=== PATIENT | female | born 1970 | race Native Hawaiian/Other Pacific Islander ===

== ENCOUNTER 2019-03-06 14:01 | Emergency (ER) | payer OTHER ==
[2019-03-06 14:10] VITALS: RESP 20; TEMP 97.8
[2019-03-06 15:48] LABS: BASO # 0.1 K/uL (0.0-0.2); BASO % 0.8 % (0.0-2.0); EOS # 0.3 K/uL (0.0-0.7); EOS % 2.7 % (0.0-4.0); HEMOGLOBIN 13.6 g/dL (11.0-16.0); LYMPH # 2.5 K/uL (1.0-4.3); MEAN CELL VOLUME 88.4 fL (81.0-99.0); MEAN CORPUSCULAR HEMOGLOBIN 30.3 pg (27.0-31.0); MEAN CORPUSCULAR HGB CONC 34.3 g/dL (33.0-37.0); MEAN PLATELET VOLUME 7.7 fL (7.2-11.7); MONO # 0.6 K/uL (0.0-0.8); MONO % 6.9 % (0.0-10.0); NEUT # 5.8 K/uL (1.8-7.0); NEUT % 62.6 % (50.0-75.0); NRBC % 0.1 % (0.0-2.0); RBC 4.47 Mil/uL (3.80-5.20); RED CELL DISTRIBUTION WIDTH 13.4 % (11.5-14.5); WHITE BLOOD COUNT 9.3 K/uL (4.8-10.8)
--- NOTE | 2019-03-06 15:50 | C.PDOC ---
History Of Present Illness Patient is a 49 year old female who presents to the ED c/o intermittent chronic posterior occiput headaches that occur sometimes weekly and sometimes daily. Patient states that she initally did not pay mind to the headaches, but over the past 2 days she has measured her blood pressure at a pharmacy and it was been ion the 150/90's which made her concerned because she has always had low blood pressure, not high blood pressure. She states that she a headache right now, but when she does it is throbbing and dull. She denies any CP, but states that she occasionally feels like her left arm is heavy and is SOB, but not presently. She denies any nausea, vomiting, constipation, or diarrhea. Patient appears anxious and is mentioning multiple problems about her health. Time Seen by Provider: 03/06/19 14:59 Chief Complaint (Nursing): High Blood Pressure History Per: Patient History/Exam Limitations: no limitations Onset/Duration Of Symptoms: Intermittent Episodes Current Symptoms Are (Timing): Still Present Associated Symptoms: denies: Chest Pain Recent travel outside of the [place]: No Additional History Per: Patient Past Medical History Reviewed: Historical Data, Nursing Documentation, Vital Signs Vital Signs: Last Vital Signs Temp 97.8 F 03/06/19 14:08 Pulse 89 03/06/19 14:08 Resp 20 03/06/19 14:08 BP 142/93 H 03/06/19 14:08 Pulse Ox 99 03/06/19 14:08 Primary Care Provider: Vianca Dougherty - Medical History PMH: No Chronic Diseases Surgical History: No Surg Hx Family History: States: No Known Family Hx - Social History Hx Alcohol Use: No Hx Substance Use: No Review Of Systems Cardiovascular: Negative for: Chest Pain Respiratory: Positive for: Shortness of Breath (occasional) Gastrointestinal: Negative for: Nausea, Vomiting, Diarrhea, Constipation Neurological: Positive for: Headache (posterior occiput ), Other (occasional left arm heaviness) Physical Exam - Physical Exam Appears: Well, Non-toxic, No Acute Distress, Other (anxious appearing, speaking rapidly, afebrile) Skin: Warm, Dry Head: Atraumatic, Normacephalic Eye(s): bilateral: Normal Inspection, PERRL, EOMI Ear(s): Bilateral: Normal Nose: Normal Oral Mucosa: Moist Throat: Normal Neck: Normal ROM, Supple Chest: Symmetrical, No Deformity Cardiovascular: Rhythm Regular (Slightly elevated pressure 142/93), No Murmur Respiratory: Normal Breath Sounds, No Rales, No Rhonchi, No Wheezing Gastrointestinal/Abdominal: Soft, No Tenderness Extremity: Pedal Edema (minimal pitting edema lower extremities) Neurological/Psych: Oriented x3, Normal Speech, Normal Cognition ED Course And Treatment - Laboratory Results Result Diagrams: 03/06/19 15:42 03/06/19 15:42 O2 Sat by Pulse Oximetry: 99 (on RA) Pulse Ox Interpretation: Normal - Other Rad CXR X-Ray: Viewed By Me, Read By Radiologist Interpretation: IMPRESSION: No active pulmonary disease. Medical Decision Making Medical Decision Making: Plan: EKG Labs CXR Disposition Counseled Patient/Family Regarding: Studies Performed, Diagnosis, Need For Followup - Disposition Referrals: Vianca Dougherty MD [Medical Doctor] - Disposition: HOME/ ROUTINE Disposition Time: 16:48 Condition: STABLE Forms: [facility] (Kiswahili), General Discharge Instructions - POA Present On Arrival: None - Clinical Impression Clinical Impression: Abnormal blood pressure - Scribe Statement The provider has reviewed the documentation as recorded by the Scribrich Breaux All medical record entries made by the Scribe were at my direction and personally dictated by me. I have reviewed the chart and agree that the record accurately reflects my personal performance of the history, physical exam, medical decision making, and the department course for this patient. I have also personally directed, reviewed, and agree with the discharge instructions and disposition.
--- NOTE | 2019-03-06 16:13 | RAD ---
Date of service: 03/06/2019 HISTORY: Shortness of breath COMPARISON: No prior. TECHNIQUE: Chest PA and lateral FINDINGS: LINES AND TUBES: None. LUNG AND PLEURA: The lungs are well inflated and clear. No pleural effusion or pneumothorax. HEART AND MEDIASTINUM: The heart is not enlarged. No aortic atherosclerotic calcifications present. The hilar and mediastinal contours are within normal limits. SKELETAL STRUCTURES: The bony structures are within normal limits for the patient's age. VISUALIZED UPPER ABDOMEN: Normal. OTHER FINDINGS: None. IMPRESSION: No active pulmonary disease.
[2019-03-06 16:15] LABS: ALB/GLOB RATIO 1.2 (1.0-2.1); ALBUMIN 4.6 g/dL (3.5-5.0); ALT/SGPT 25 U/L (9-52); AST/SGOT 33 U/L (14-36); BLOOD UREA NITROGEN 17 mg/dL (7-17); CALCIUM 9.9 mg/dl (8.6-10.4); GFR NON-AFRICAN AMERICAN > 60
[2019-03-06 16:33] VITALS: BP 134/73; PULSE 81
[2019-03-06 16:49] VITALS: O2SAT 99
--- NOTE | 2019-03-10 21:17 | CARD ---
APPROVED REPORT Date of service: 03/06/2019 EKG Measurement Heart [id number] <Conclusion> Normal sinus rhythm Normal ECG
== END 2019-03-06 17:14 | disposition home or self-care (01) ==
LOC: C.ER 14:01
DX: R03.0 Elevated blood-pressure reading, without diagnosis of hypertension (principal)